=== PATIENT | female | born 1980 | race Caucasian/White ===

== ENCOUNTER 2019-07-26 12:38 | Emergency (ER) | payer BC ==
[2019-07-26 12:50] VITALS: TEMP 97.8
[2019-07-26] MEDS ORDERED: SODIUM CHLORIDE 0.9% 1,000 ML IV STA (13:00)
[2019-07-26 13:32] LABS: Basophils % (A) 1 %; Eosinophils # (A) 0.3 k/uL (0-0.7); Eosinophils % (A) 4 %; HCT 43.8 % (34.0-46.0); Lymphocytes # (A) 2.4 k/uL (1.0-4.8); Lymphocytes % (A) 39 %; MCH 30.5 pg (25.0-35.0); MCHC 34.3 g/dL (31.0-37.0); MCV 89.1 fL (80.0-100.0); Mean Platelet Volume 6.6; Monocytes # (A) 0.4 k/uL (0-1.0); Monocytes % (A) 7 %; Neutrophils % (A) 48 %; Platelet Count 260 k/uL (150-450); RBC 4.92 m/uL (3.80-5.40); RDW 12.3 % (11.5-15.5); WBC 6.3 k/uL (3.8-10.6)
[2019-07-26 13:37] LABS: ALT 34 U/L (9-52); AST 34 U/L (14-36); African American GFR (CKD) >90 (>60 ml/min/1.73 sqM); Albumin 4.9 g/dL (3.5-5.0); Alkaline Phosphatase 80 U/L (38-126); Amylase 101 U/L (30-110); Anion Gap 11 mmol/L; Blood Urea Nitrogen 19 mg/dL (7-17); Calcium 10.2 mg/dL (8.4-10.2); Carbon Dioxide 25 mmol/L (22-30); Chloride 104 mmol/L (98-107); Glucose 95 mg/dL (74-99); Non-African American GFR(CKD) >90 (>60 ml/min/1.73 sqM); Potassium 4.5 mmol/L (3.5-5.1); Sodium 140 mmol/L (137-145); Total Bilirubin 0.5 mg/dL (0.2-1.3)
[2019-07-26 13:44] LABS: Appearance,Urine Clear (Clear); Bilirubin,Urine Negative (Negative); Blood,Urine Negative (Negative); Color,Urine Light Yellow; Glucose,Urine (UA) Negative (Negative); Ketones,Urine Negative (Negative); Leukocyte Esterase,Urine Negative (Negative); Nitrite,Urine Negative (Negative); PH, Urine 7.5 (5.0-8.0); Protein,Urine Negative (Negative); Specific Gravity,Urine 1.007 (1.001-1.035); Urobilinogen,Urine <2.0 mg/dL (<2.0)
--- NOTE | 2019-07-26 13:52 | ED ---
Abdominal Pain HPI - General Chief Complaint: Abdominal Pain Stated Complaint: Abd pain Time Seen by Provider: 07/26/19 12:51 Source: patient, RN notes reviewed Mode of arrival: ambulatory Limitations: no limitations - History of Present Illness Initial Comments: 39-year-old female presents emergency Department chief complaint of left lower quadrant abdominal pain. Patient states pains started last few days. Patient states that it does hurt to twist and bend. Patient has mild dysuria no urinalysis at [facility] was negative. Patient was seen there and sent here for further evaluation. Patient reports no fevers or chills. She has not that she has some sweats last night. Patient states she has some mild vaginal discharge with no odor. Patient denies any current chest pain or shortness breath. Patient's had a prior complete hysterectomy, appendectomy MD Complaint: abdominal pain - Related Data Previous Rx's Medication Instructions Recorded Fluconazole [Diflucan] 150 mg PO ONCE #3 tab 07/26/19 metroNIDAZOLE [Flagyl] 500 mg PO TID #21 tab 07/26/19 Allergies Allergy/AdvReac Type Severity Reaction Status Date / Time hydromorphone [From Dilaudid] Allergy Rash/Hives Verified 07/26/19 12:50 Review of Systems ROS Statement: Those systems with pertinent positive or pertinent negative responses have been documented in the HPI. ROS Other: All systems not noted in ROS Statement are negative. Past Medical History Past Medical History: Cancer History of Any Multi-Drug Resistant Organisms: None Reported Past Surgical History: Appendectomy, Hysterectomy, Uterine Ablation Additional Past Surgical History / Comment(s): narciso mastectomy, Past Psychological History: Anxiety Smoking Status: Current some day smoker Past Alcohol Use History: None Reported Past Drug Use History: None Reported General Exam Limitations: no limitations General appearance: alert, in no apparent distress Head exam: Present: atraumatic, normocephalic, normal inspection Eye exam: Present: normal appearance, PERRL, EOMI. Absent: scleral icterus, conjunctival injection, periorbital swelling ENT exam: Present: normal exam, mucous membranes moist Neck exam: Present: normal inspection, full ROM. Absent: tenderness, meningismus, lymphadenopathy Respiratory exam: Present: normal lung sounds bilaterally. Absent: respiratory distress, wheezes, rales, rhonchi, stridor Cardiovascular Exam: Present: regular rate, normal rhythm, normal heart sounds. Absent: systolic murmur, diastolic murmur, rubs, gallop, clicks GI/Abdominal exam: Present: soft, tenderness (Moderate left lower quadrant), normal bowel sounds. Absent: distended, guarding, rebound, rigid Back exam: Absent: CVA tenderness (R), CVA tenderness (L) Skin exam: Present: warm, dry, intact, normal color. Absent: rash Course Vital Signs 07/26/19 12:47 Temperature 97.8 F Pulse Rate 85 Respiratory 20 Rate Blood Pressure 110/72 O2 Sat by Pulse 99 Oximetry Medical Decision Making - Medical Decision Making Computed tomography scan showed evidence of constipation otherwise unremarkable. Labs show mild pancreatitis to has no symptoms of this. Patient will be treated for constipation. Patient does complain some vaginal discharge I did offer exam patient declines. Patient has been on recent antibiotics this is concerning for possibly some infection versus Bactrim vaginal cyst. Patient di scharged return parameters were discussed. - Lab Data Result diagrams: 07/26/19 13:00 07/26/19 13:00 Lab Results 07/26/19 07/26/19 07/26/19 Range/Units 13:00 13:00 13:00 WBC 6.3 (3.8-10.6) k/uL RBC 4.92 (3.80-5.40) m/uL Hgb 15.0 (11.4-16.0) gm/dL Hct 43.8 (34.0-46.0) % MCV 89.1 (80.0-100.0) fL MCH 30.5 (25.0-35.0) pg MCHC 34.3 (31.0-37.0) g/dL RDW 12.3 (11.5-15.5) % Plt Count 260 (150-450) k/uL Neutrophils % 48 % Lymphocytes % 39 % Monocytes % 7 % Eosinophils % 4 % Basophils % 1 % Neutrophils # 3.0 (1.3-7.7) k/uL Lymphocytes # 2.4 (1.0-4.8) k/uL Monocytes # 0.4 (0-1.0) k/uL Eosinophils # 0.3 (0-0.7) k/uL Basophils # 0.0 (0-0.2) k/uL Sodium 140 (137-145) mmol/L Potassium 4.5 (3.5-5.1) mmol/L Chloride 104 (98-107) mmol/L Carbon Dioxide 25 (22-30) mmol/L Anion Gap 11 mmol/L BUN 19 H (7-17) mg/dL Creatinine 0.55 (0.52-1.04) mg/dL Est GFR (CKD-EPI)AfAm >90 (>60 ml/min/1.73 sqM) Est GFR (CKD-EPI)NonAf >90 (>60 ml/min/1.73 sqM) Glucose 95 (74-99) mg/dL Plasma Lactic Acid Sarthak 0.8 (0.7-2.0) mmol/L Calcium 10.2 (8.4-10.2) mg/dL Total Bilirubin 0.5 (0.2-1.3) mg/dL AST 34 (14-36) U/L ALT 34 (9-52) U/L Alkaline Phosphatase 80 (38-126) U/L Total Protein 8.0 (6.3-8.2) g/dL Albumin 4.9 (3.5-5.0) g/dL Amylase 101 (30-110) U/L Lipase 657 H (23-300) U/L Urine Color Urine Appearance (Clear) Urine pH (5.0-8.0) Ur Specific [place] (1.001-1.035) Urine Protein (Negative) Urine Glucose (UA) (Negative) Urine Ketones (Negative) Urine Blood (Negative) Urine Nitrite (Negative) Urine Bilirubin (Negative) Urine Urobilinogen (<2.0) mg/dL Ur Leukocyte Esterase (Negative) 07/26/19 Range/Units 13:00 WBC (3.8-10.6) k/uL RBC (3.80-5.40) m/uL Hgb (11.4-16.0) gm/dL Hct (34.0-46.0) % MCV (80.0-100.0) fL MCH (25.0-35.0) pg MCHC (31.0-37.0) g/dL RDW (11.5-15.5) % Plt Count (150-450) k/uL Neutrophils % % Lymphocytes % % Monocytes % % Eosinophils % % Basophils % % Neutrophils # (1.3-7.7) k/uL Lymphocytes # (1.0-4.8) k/uL Monocytes # (0-1.0) k/uL Eosinophils # (0-0.7) k/uL Basophils # (0-0.2) k/uL Sodium (137-145) mmol/L Potassium (3.5-5.1) mmol/L Chloride (98-107) mmol/L Carbon Dioxide (22-30) mmol/L Anion Gap mmol/L BUN (7-17) mg/dL Creatinine (0.52-1.04) mg/dL Est GFR (CKD-EPI)AfAm (>60 ml/min/1.73 sqM) Est GFR (CKD-EPI)NonAf (>60 ml/min/1.73 sqM) Glucose (74-99) mg/dL Plasma Lactic Acid Sarthak (0.7-2.0) mmol/L Calcium (8.4-10.2) mg/dL Total Bilirubin (0.2-1.3) mg/dL AST (14-36) U/L ALT (9-52) U/L Alkaline Phosphatase (38-126) U/L Total Protein (6.3-8.2) g/dL Albumin (3.5-5.0) g/dL Amylase (30-110) U/L Lipase (23-300) U/L Urine Color Light Yellow Urine Appearance Clear (Clear) Urine pH 7.5 (5.0-8.0) Ur Specific [place] 1.007 (1.001-1.035) Urine Protein Negative (Negative) Urine Glucose (UA) Negative (Negative) Urine Ketones Negative (Negative) Urine Blood Negative (Negative) Urine Nitrite Negative (Negative) Urine Bilirubin Negative (Negative) Urine Urobilinogen <2.0 (<2.0) mg/dL Ur Leukocyte Esterase Negative (Negative) Disposition Clinical Impression: Abdominal pain, Constipation, Vaginal discharge Disposition: HOME SELF-CARE Condition: Stable Instructions (If sedation given, give patient instructions): Abdominal Pain (ED) Additional Instructions: Take [id number] magnesium citrate or Fleet's enema. Please return to the Emergency Department if symptoms worsen or any other concerns. Prescriptions: Fluconazole [Diflucan] 150 mg PO ONCE #3 tab metroNIDAZOLE [Flagyl] 500 mg PO TID #21 tab Is patient prescribed a controlled substance at d/c from ED?: No Referrals: Tomas Gama MD [Primary Care Provider] - 1-2 days Time of Disposition: 14:23
--- NOTE | 2019-07-26 14:07 | CT ---
EXAMINATION TYPE: CT abdomen pelvis w con DATE OF EXAM: 07/26/2019 COMPARISON: None HISTORY: Abdominal pain CT DLP: 1023.9 mGycm CONTRAST: CT scan of the abdomen and pelvis is performed without Oral Contrast and with IV Contrast, patient in jected with 100 ml mL of Isovue 300. FINDINGS: LUNG BASES-: No visible nodule. No infiltrate. LIVER/GB: No calcified gallstones. No space occupying hepatic lesion. Biliary tree is of normal ca liber. PANCREAS: No inflammation. No distinct mass. SPLEEN: No splenic enlargement. No lesion seen. ADRENALS: No nodule. No thickening. KIDNEYS/BLADDER: No hydronephrosis. Nonobstructing calculus lower pole right kidney measuring 3 mm. No distinct renal mass. Urinary bladder grossly unremarkable. BOWEL: Normal appendix. Normal bowel caliber. No inflammation. GENITAL ORGANS: No gross abnormality. LYMPH NODES: No greater than 1cm abdominal or pelvic lymph nodes are appreciated. AORTA: No significant abnormality. OSSEOUS STRUCTURES: No significant abnormality is seen. OTHER: No significant additional abnormality is seen. IMPRESSION: 1. No acute process identified at this time to account for the patient's symptoms. Mild fecal stasis.
[2019-07-26 14:32] VITALS: BP 115/89; PULSE 74; RESP 18
== END 2019-07-26 14:31 | disposition home or self-care (01) ==
LOC: EC 12:38
DX: K59.00 Constipation, unspecified (principal); N93.9 Abnormal uterine and vaginal bleeding, unspecified; F17.200 Nicotine dependence, unspecified, uncomplicated; Z88.5 Allergy status to narcotic agent; Z90.13 Acquired absence of bilateral breasts and nipples; Z90.89 Acquired absence of other organs; Z90.710 Acquired absence of both cervix and uterus
CPT/HCPCS: 36415; 80053; 82150; 83605; 83690; 85025; 81003; 74177; 99284; 96360; Q9967